=== PATIENT | female | born 1995 | race American Indian/Alaskan Native ===

== ENCOUNTER 2016-11-02 14:29 | Emergency (ER) | payer OTHER ==
[2016-11-02 15:09] VITALS: BP 129/73
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
== END 2016-11-02 18:48 | disposition home or self-care (01) ==
LOC: ED 14:29
DX: S40.021A Contusion of right upper arm, initial encounter (principal); M25.561 Pain in right knee; F17.200 Nicotine dependence, unspecified, uncomplicated; V49.49XA Driver injured in collision with other motor vehicles in traffic accident, initial encounter; Y93.9 Activity, unspecified; Y92.9 Unspecified place or not applicable; Y99.9 Unspecified external cause status
CPT/HCPCS: 99282

== ENCOUNTER 2017-11-02 20:15 | Emergency (ER) | payer MEDICAID, OTHER ==
[2017-11-02 20:42] VITALS: BP 131/79
--- NOTE | 2017-11-03 01:16 | Emergency Department Report ---
- General Chief complaint: Skin/Abscess/Foreign Body Stated complaint: CYST ON BREAST Time Seen by Provider: 11/03/17 00:30 Source: patient Mode of arrival: Ambulatory Limitations: No Limitations - History of Present Illness Initial comments: 22-year-old female past medical history recurrent abscesses and cyst presents with complaint of 3 days of swelling previous site on anterior upper chest wall near the right quadrant of left breast overlying sternum. Patient denies fevers chills nausea vomiting. States this is what it felt like when she had an abscess here before. Denies any pain at nipple region or swelling of breast breast. No discharge from breast. Patient denies any other symptoms. MD complaint: abscess/boil Onset/Timin -: days(s) Location: chest Severity: mild Severity scale (0 -10): 5 Quality: aching Consistency: constant Improves with: none Worsens with: palpation Context: none - Related Data Previous Rx's Medication Instructions Recorded Last Taken Type Sulfamethoxazole/Trimethoprim 1 each PO BID #20 tablet 03/29/13 Unknown Rx [Bactrim DS] HYDROcodone/ACETAMINOPHEN [[place] 1 each PO Q6HR #20 tablet 01/22/14 Unknown Rx 5/325 Tablet] Sulfamethoxazole/Trimethoprim 1 each PO BID #20 tablet 01/22/14 Unknown Rx [Bactrim Ds] Cyclobenzaprine [Flexeril] 10 mg PO TID PRN #15 tablet 11/02/16 Unknown Rx Ibuprofen [Motrin 600 MG tab] 600 mg PO Q8H PRN #15 tablet 11/02/16 Unknown Rx Ibuprofen [Motrin] 800 mg PO Q8HR PRN #20 tablet 11/03/17 Unknown Rx Sulfamethoxazole/Trimethoprim 1 each PO BID #14 tablet 11/03/17 Unknown Rx [Bactrim DS TAB] Allergies Allergy/AdvReac Type Severity Reaction Status Date / Time No Known Allergies Allergy Unverified 03/26/13 10:10 Abscess Boil HPI - HPI Chief Complaint: Skin/Abscess/Foreign Body Stated Complaint: CYST ON BREAST Time Seen by Provider: 11/03/17 00:30 Home Medications: Previous Rx's Medication Instructions Recorded Last Taken Type Sulfamethoxazole/Trimethoprim 1 each PO BID #20 tablet 03/29/13 Unknown Rx [Bactrim DS] HYDROcodone/ACETAMINOPHEN [[place] 1 each PO Q6HR #20 tablet 01/22/14 Unknown Rx 5/325 Tablet] Sulfamethoxazole/Trimethoprim 1 each PO BID #20 tablet 01/22/14 Unknown Rx [Bactrim Ds] Cyclobenzaprine [Flexeril] 10 mg PO TID PRN #15 tablet 11/02/16 Unknown Rx Ibuprofen [Motrin 600 MG tab] 600 mg PO Q8H PRN #15 tablet 11/02/16 Unknown Rx Ibuprofen [Motrin] 800 mg PO Q8HR PRN #20 tablet 11/03/17 Unknown Rx Sulfamethoxazole/Trimethoprim 1 each PO BID #14 tablet 11/03/17 Unknown Rx [Bactrim DS TAB] Allergies/Adverse Reactions: Allergies Allergy/AdvReac Type Severity Reaction Status Date / Time No Known Allergies Allergy Unverified 03/26/13 10:10 ED Review of Systems ROS: Stated complaint: CYST ON BREAST Other details as noted in HPI Constitutional: denies: chills, fever Eyes: denies: eye pain, eye discharge, vision change ENT: denies: ear pain, throat pain Respiratory: denies: cough, shortness of breath, wheezing Cardiovascular: denies: chest pain, palpitations Endocrine: no symptoms reported Gastrointestinal: denies: abdominal pain, nausea, diarrhea Genitourinary: denies: urgency, dysuria, discharge Musculoskeletal: denies: back pain, joint swelling, arthralgia Skin: as per HPI. denies: rash, lesions Neurological: denies: headache, weakness, paresthesias Psychiatric: denies: anxiety, depression Hematological/Lymphatic: denies: easy bleeding, easy bruising ED Past Medical Hx - Past Medical History Previous Medical History?: No - Surgical History Past Surgical History?: No - Social History Smoking Status: Current Every Day Smoker Substance Use Type: None, Marijuana - Medications Home Medications: Home Medications Medication Instructions Recorded Confirmed Last Taken Type Sulfamethoxazole/Trimethoprim 1 each PO BID #20 tablet 03/29/13 Unknown Rx [Bactrim DS] HYDROcodone/ACETAMINOPHEN [[place] 1 each PO Q6HR #20 tablet 01/22/14 Unknown Rx 5/325 Tablet] Sulfamethoxazole/Trimethoprim 1 each PO BID #20 tablet 01/22/14 Unknown Rx [Bactrim Ds] Cyclobenzaprine [Flexeril] 10 mg PO TID PRN #15 tablet 11/02/16 Unknown Rx Ibuprofen [Motrin 600 MG tab] 600 mg PO Q8H PRN #15 tablet 11/02/16 Unknown Rx Ibuprofen [Motrin] 800 mg PO Q8HR PRN #20 tablet 11/03/17 Unknown Rx Sulfamethoxazole/Trimethoprim 1 each PO BID #14 tablet 11/03/17 Unknown Rx [Bactrim DS TAB] ED Physical Exam - General Limitations: No Limitations General appearance: alert, in no apparent distress - Head Head exam: Present: atraumatic, normocephalic - Eye Eye exam: Present: normal appearance, PERRL, EOMI - ENT ENT exam: Present: mucous membranes moist - Neck Neck exam: Present: normal inspection - Respiratory Respiratory exam: Present: normal lung sounds bilaterally. Absent: respiratory distress - Cardiovascular Cardiovascular Exam: Present: regular rate, normal rhythm. Absent: systolic murmur, diastolic murmur, rubs, gallop - GI/Abdominal GI/Abdominal exam: Present: soft, normal bowel sounds - Extremities Exam Extremities exam: Present: normal inspection - Back Exam Back exam: Present: normal inspection - Neurological Exam Neurological exam: Present: alert, oriented X3 - Psychiatric Psychiatric exam: Present: normal affect, normal mood - Skin Skin exam: Present: warm, dry, intact, normal color. Absent: rash - Expanded Skin Exam Expanded Type of lesion: Present: abscess Distribution of rash: chest Description of rash: Present: size (approximately 3-4 cm in diameter), tenderness, swelling 1 - Small abscess here approximately 3-4 cm in diameter at best. Previous scar from previous incision and drainage here ED Course Vital Signs 11/02/17 11/03/17 20:36 02:06 Temperature 98 F Pulse Rate 82 Respiratory 16 18 Rate Blood Pressure 131/79 O2 Sat by Pulse 99 Oximetry - I & D Chest Type of Procedure: Simple Site: anterior chest overlying sternal region close to edge of left breast border Blade Size: 11 I & D Procedure: betadine prep, gauze wick placed Progress: Infiltrated with lidocaine. Good local anesthesia achieved. Single stab incision made. Approximately 3-4 mL of purulent drainage expressed from abscess site. Significant evacuation achieved. Approximately 4-5 inches of quarter-inch Xeroform gauze placed into the wound site. Covered with gauze afterward. Procedure tolerated well. She experienced significant relief of pain with expression of pus. ED Medical Decision Making - Medical Decision Making A/P: Chest subcutaneous abscess 1-there involvement of bulk of breast tissue is at edge of breast tissue therefore it is reasonable for me to incise and drain 2-I provided patient with information for dermatology as well as Dr. Epstein breast surgeon advised her to follow up as soon as possible 3-wound culture collected and sent 4-empiric course of Bactrim DS twice a day. Motrin when necessary. She requested Tylenol No. 3 when necessary 5- advised patient to return to the ED if abscess we accumulates there is any development of erythema or involvement of nipple breast. Patient does not have the symptoms at this time. Patient stated she understood my instructions. Critical care attestation.: If time is entered above; I have spent that time in minutes in the direct care of this critically ill patient, excluding procedure time. ED Disposition Clinical Impression: Abscess Disposition: TO HOME OR SELFCARE Is pt being admited?: No Does the pt Need Aspirin: No Condition: Stable Instructions: Abscess Incision and Drainage (ED), Abscess (ED) Additional Instructions: Remove packing in 12-24 hours or return to the ED for removal of packing within 72 hours. Prescriptions: Ibuprofen [Motrin] 800 mg PO Q8HR PRN #20 tablet PRN Reason: Pain Sulfamethoxazole/Trimethoprim [Bactrim DS TAB] 1 each PO BID #14 tablet Referrals: PUNEET EPSTEIN MD [Staff Physician] - 3-5 Days [facility] [Provider Group] - 3-5 Days Forms: Work/School Release Form(ED) Time of Disposition: 02:16
[2017-11-03] MEDS ORDERED: NORCO 5/325 PO ONE (01:17)
[2017-11-03] MEDS ORDERED: BACTRIM DS PO ONE (01:17)
== END 2017-11-03 02:39 | disposition home or self-care (01) ==
LOC: ED 20:15
DX: L02.213 Cutaneous abscess of chest wall (principal); F17.200 Nicotine dependence, unspecified, uncomplicated; F12.90 Cannabis use, unspecified, uncomplicated
CPT/HCPCS: 87116

== ENCOUNTER 2020-10-18 06:57 | Emergency (ER) | payer MEDICAID ==
[2020-10-18 07:11] VITALS: BP 160/103
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
== END 2020-10-18 08:35 | disposition home or self-care (01) ==
LOC: ED 06:57
DX: L03.311 Cellulitis of abdominal wall (principal); E11.9 Type 2 diabetes mellitus without complications; Z86.2 Personal history of diseases of the blood and blood-forming organs and certain disorders involving the immune mechanism; Z79.899 Other long term (current) drug therapy
CPT/HCPCS: 99282